=== PATIENT | male | born 1975 | race African-American/Black ===

== ENCOUNTER 2024-10-05 12:04 | Inpatient (IN) | payer OTHER ==
[2024-10-05] MEDS ORDERED: guaiFENesin 600 MG TABLET.ER (FP) PO PRN (17:12)
[2024-10-05] MEDS ORDERED: BENZOCAINE/MENTHOL (CHLORASEPTIC ) LOZENGE MM PRN (17:12)
[2024-10-05] MEDS ORDERED: MAGNESIUM HYDROX 2400MG/30ML ORAL SUSPENSION 30 ML CUP PO PRN (17:12)
[2024-10-05] MEDS ORDERED: BENZONATATE 200 MG CAPSULE PO PRN (17:12)
[2024-10-05] MEDS ORDERED: ACETAMINOPHEN 325 MG TABLET (FP) PO PRN (17:12)
[2024-10-05] MEDS ORDERED: MAG HYDROX/AL HYDROX/SIMETH 30 ML UNIT-DOSE CUP PO PRN (17:12)
[2024-10-05] MEDS ORDERED: IBUPROFEN 400 MG TABLET (FP) PO PRN (17:12)
[2024-10-05] MEDS ORDERED: LOPERAMIDE HCL 2 MG CAPSULE PO PRN (17:12)
[2024-10-05] MEDS ORDERED: POLYETHYLENE GLYCOL (HEALTHYLAX) 3350 17 GM PACKET PO PRN (17:12)
[2024-10-05] MEDS ORDERED: NICOTINE POLACRILEX 2 MG GUM BUC PRN (17:17)
[2024-10-05] MEDS: INSULIN GLARGINE (LANTUS) 100 UNITS/ML UNITS SQ SCH (21:57)
[2024-10-05] MEDS: MELATONIN 5 MG TABLETS PO SCH (21:58)
[2024-10-05] MEDS: THIAMINE 100 MG TABLET PO SCH (21:58)
[2024-10-05] MEDS ORDERED: PATIENT'S OWN MEDICATION (NON-FORMULARY) (Insulin Glargine,Hum.Rec.Anlog 100 UNITS/ML Ins) SQ SCH (22:00)
[2024-10-05] MEDS ORDERED: PATIENT'S OWN MEDICATION (NON-FORMULARY) (Insulin Lispro [Humalog Kwikpen U-100] 100 UNIT/ SQ SCH (22:00)
[2024-10-06] MEDS: PRENATAL VITAMINS W/ FOLIC ACID TABLET (FP) PO SCH (06:00)
[2024-10-06] MEDS: INSULIN (NOVOLOG) ASPART 100 UNITS/ML 10ML VIAL SQ SCH (07:00)
[2024-10-06] MEDS: NICOTINE 7 MG/24 HOURS TOPICAL PATCH TD SCH (10:33)
[2024-10-06] MEDS: METHOCARBAMOL 500 MG TABLET PO PRN (21:43)
[2024-10-07] MEDS ORDERED: INSULIN (NOVOLOG) ASPART 100 UNITS/ML 10ML VIAL ONE (11:20)
[2024-10-08] MEDS ORDERED: INSULIN (NOVOLOG) ASPART 100 UNITS/ML 10ML VIAL SQ ONE (16:19)
[2024-10-08] MEDS: INSULIN ASPART SLIDING SCALE (NOVOLOG) 1 VIAL SQ SCH (16:28)
[2024-10-09] MEDS ORDERED: INSULIN (NOVOLOG) ASPART 100 UNITS/ML 10ML VIAL SQ ONE ×2 (11:01→16:34)
[2024-10-10] MEDS ORDERED: INSULIN (NOVOLOG) ASPART 100 UNITS/ML 10ML VIAL SQ ONE (10:50)
[2024-10-10] MEDS: hydrOXYzine PAMOATE 25 MG CAPSULE (FP) PO PRN (21:30)
[2024-10-11] MEDS ORDERED: INSULIN (NOVOLOG) ASPART 100 UNITS/ML 10ML VIAL SQ ONE ×3 (11:20→16:59)
[2024-10-11] MEDS: NALTREXONE HCL 50 MG TABLET PO ONE (12:10)
[2024-10-12] MEDS: NALTREXONE HCL 50 MG TABLET PO SCH (09:47)
[2024-10-12] MEDS ORDERED: INSULIN (NOVOLOG) ASPART 100 UNITS/ML 10ML VIAL SQ ONE (16:40)
[2024-10-12] MEDS ORDERED: INSULIN GLARGINE (LANTUS) 100 UNITS/ML UNITS SQ ONE (21:34)
[2024-10-14] MEDS ORDERED: INSULIN (NOVOLOG) ASPART 100 UNITS/ML 10ML VIAL SQ ONE (06:43)
[2024-10-15] MEDS: PRENATAL VITAMINS W/ FOLIC ACID TABLET (FP) PO SCH (10:03)
[2024-10-16] MEDS ORDERED: INSULIN (NOVOLOG) ASPART 100 UNITS/ML 10ML VIAL SQ ONE ×2 (06:50→16:45)
[2024-10-17] MEDS ORDERED: INSULIN (NOVOLOG) ASPART 100 UNITS/ML 10ML VIAL SQ ONE ×2 (06:24→16:50)
[2024-10-18] MEDS: IBUPROFEN 600 MG TABLET (FP) PO PRN (14:05)
[2024-10-18] MEDS: INSULIN ASPART SLIDING SCALE (NOVOLOG) 1 VIAL SQ SCH (17:01)
[2024-10-18] MEDS: LIDOCAINE PATCH REMOVAL MC SCH (21:21)
[2024-10-20] MEDS: LIDOCAINE 5% TOPICAL PATCH TP PRN (09:45)
[2024-10-20] MEDS ORDERED: INSULIN (NOVOLOG) ASPART 100 UNITS/ML 10ML VIAL SQ ONE (16:36)
[2024-10-21 06:40] VITALS: BP 126/79; PULSE 72; RESP 18; TEMP 97.6
== END 2024-10-21 10:22 | disposition home or self-care (01) | DRG 772 ==
LOC: YASAS 12:04 → Y3NR 12:05 → Y5N 10-07 11:08
PROVIDERS: ADMIT Psychiatry & Neurology Pain Medicine; ATTEND Psychiatry & Neurology Pain Medicine
PROC: HZ42ZZZ Group Counseling for Substance Abuse Treatment, Cognitive-Behavioral (ICD-10-PCS; principal; 2024-10-05)
DX: F10.20 Alcohol dependence, uncomplicated (principal); F12.20 Cannabis dependence, uncomplicated; F17.210 Nicotine dependence, cigarettes, uncomplicated; F41.9 Anxiety disorder, unspecified; E10.9 Type 1 diabetes mellitus without complications; Z79.4 Long term (current) use of insulin; Z89.419 Acquired absence of unspecified great toe; Z89.421 Acquired absence of other right toe(s); Z89.422 Acquired absence of other left toe(s); Z59.02 Unsheltered homelessness
CPT/HCPCS: 36415; 82962; 86803; 87811